=== PATIENT | female | born 1950 | race Two or more races ===

== ENCOUNTER 2022-09-13 16:25 | Inpatient (IN) | payer MEDICARE ==
[~2022-09-13] VITALS: Ht 162.6 cm; Wt 86.4 kg
[2022-09-13] MEDS ORDERED: ONDANSETRON HCL 4 MG/2 ML VIAL IV ONE (17:00)
[2022-09-13 17:22] LABS: Basophils # (auto) 0.1 10 ^3/uL (0-0.2); Basophils % (auto) 0.4 % (0.0-2.0); Eosinophils # (auto) 0 10 ^3/uL (0-0.8); Eosinophils % (auto) 0.3 % (0.0-7.0); Hematocrit 47.7 % (36.0-46.0); Hemoglobin 15.8 g/dL (12.2-16.2); Lymphocytes % (auto) 7.8 % (10.0-50.0); Mean Corpuscular Hemoglobin 29.5 pg (28.0-32.0); Mean Corpuscular Hgb Conc. 33.1 g/dL (32.0-36.0); Mean Corpuscular Volume 89.1 fL (80.0-100.0); Monocytes # (auto) 1.2 10 ^3/uL (0-1.3); Monocytes % (auto) 9.3 % (0.0-12.0); Neutrophils # (auto) 10.6 10 ^3/uL (1.6-8.6); Neutrophils % (auto) 82.2 % (37.0-80.0); Nucleated Red Blood Cells % 0.4 %; Red Blood Cells 5.36 10^6/uL (4.0-5.20); Red Cell Distribution Width 15.4 % (11.8-14.3); White Blood Cell 12.8 10^3/uL (4.4-10.8)
[2022-09-13 17:28] LABS: Albumin 3.5 g/dL (3.4-5.0); Calcium 9.5 mg/dL (8.5-10.1); Potassium 3.6 mmol/L (3.5-5.1)
[2022-09-13 17:31] LABS: BUN/Creatinine Ratio 14.3 (10.0-20.0); Bilirubin, Total 0.7 mg/dL (0.2-1.0); Total Protein 7.6 g/dL (6.4-8.2)
[2022-09-13] MEDS ORDERED: MORPHINE SULFATE INJ 2 MG/ml SYRG IV ONE (18:00)
[2022-09-13] MEDS ORDERED: PANTOPRAZOLE 40 MG/10 ML VIAL INJ IV ONE (18:00)
[2022-09-13] MEDS ORDERED: levoFLOXacin 500MG 100 ML IV ONE (20:00)
[2022-09-13] MEDS ORDERED: metroNIDAZOLE 500MG/100ML 100 ML IV ONE (20:00)
[2022-09-13 20:18] LABS: Urine Bacteria FEW /hpf (None Seen); Urine Blood Negative /uL (Negative); Urine Hyaline Cast MANY /lpf (0 - 2); Urine Mucus FEW (None Seen); Urine Specific Gravity 1.021 (1.001-1.035); Urine WBC 1 /hpf (0 - 5)
[2022-09-14] MEDS ORDERED: MORPHINE SULFATE INJ 2 MG/ml SYRG IV PRN
[2022-09-14] MEDS ORDERED: DEXTROSE (50%) 50ML SYRG IV PRN
[2022-09-14] MEDS ORDERED: hydrALAZINE HCL 20 MG/ML VL IV PRN
[2022-09-14] MEDS ORDERED: NITROGLYCERIN 0.4 MG SL TAB SL PRN
[2022-09-14] MEDS ORDERED: ACETAMINOPHEN 325 MG TAB PO PRN
[2022-09-14] MEDS ORDERED: ONDANSETRON HCL 4 MG/2 ML VIAL IV PRN
[2022-09-14] MEDS ORDERED: HYDROcodone-ACET 5/325MG TAB PO PRN
[2022-09-14] MEDS ORDERED: levoFLOXacin 500MG 100 ML IV ONE (00:15)
[2022-09-14] MEDS ORDERED: metroNIDAZOLE 500MG/100ML 100 ML IV ONE (00:15)
[2022-09-14] MEDS: ACCU-CHEK COMFORT CURVE STRIP VI SCH ×5 (00:40→23:49)
[2022-09-14] MEDS: InsuLIN REG 1unit/0.01ml Soln (100units/ml) SC SCH ×5 (00:51→23:53)
[2022-09-14] MEDS: MORPHINE SULFATE INJ 2 MG/ml SYRG IV PRN ×3 (03:00→15:31)
[2022-09-14 04:05] LABS: Basophils # (auto) 0 10 ^3/uL (0-0.2); Basophils % (auto) 0.3 % (0.0-2.0); Eosinophils # (auto) 0 10 ^3/uL (0-0.8); Hematocrit 43.7 % (36.0-46.0); Hemoglobin 14.8 g/dL (12.2-16.2); Lymphocytes # (auto) 0.9 10 ^3/uL (0.4-5.4); Lymphocytes % (auto) 16.5 % (10.0-50.0); Mean Corpuscular Hemoglobin 30.6 pg (28.0-32.0); Mean Corpuscular Hgb Conc. 33.9 g/dL (32.0-36.0); Mean Corpuscular Volume 90.2 fL (80.0-100.0); Monocytes # (auto) 0.8 10 ^3/uL (0-1.3); Neutrophils % (auto) 69.2 % (37.0-80.0); Nucleated Red Blood Cells % 0.2 %; Red Blood Cells 4.84 10^6/uL (4.0-5.20); Red Cell Distribution Width 15.4 % (11.8-14.3); White Blood Cell 5.8 10^3/uL (4.4-10.8)
[2022-09-14 04:22] LABS: Calcium 8.8 mg/dL (8.5-10.1); Potassium 3.9 mmol/L (3.5-5.1)
[2022-09-14 04:28] LABS: BUN/Creatinine Ratio 22.1 (10.0-20.0); Bilirubin, Total 0.6 mg/dL (0.2-1.0); Total Protein 7.1 g/dL (6.4-8.2)
[2022-09-14] MEDS: metroNIDAZOLE 500MG/100ML 100 ML IV SCH ×3 (06:40→23:49)
[2022-09-14] MEDS ORDERED: GASTROGRAFIN 120 ML SOL ONE (09:25)
[2022-09-14] MEDS: FAMOTIDINE (10MG/ML) 2ML VL IV SCH (10:36)
[2022-09-14] MEDS ORDERED: metroNIDAZOLE 500MG/100ML 100 ML IV SCH (14:00)
[2022-09-14 22:00] VITALS: BP 122/48
[2022-09-15 05:00] VITALS: BP 101/54
[2022-09-15] MEDS: metroNIDAZOLE 500MG/100ML 100 ML IV SCH ×2 (05:43→13:50)
[2022-09-15] MEDS: ACCU-CHEK COMFORT CURVE STRIP VI SCH ×2 (05:43→11:46)
[2022-09-15] MEDS: InsuLIN REG 1unit/0.01ml Soln (100units/ml) SC SCH ×2 (05:44→11:46)
[2022-09-15 06:12] LABS: Basophils # (auto) 0.1 10 ^3/uL (0-0.2); Basophils % (auto) 1.1 % (0.0-2.0); Eosinophils # (auto) 0.2 10 ^3/uL (0-0.8); Eosinophils % (auto) 2.4 % (0.0-7.0); Hematocrit 37.9 % (36.0-46.0); Hemoglobin 12.6 g/dL (12.2-16.2); Lymphocytes # (auto) 1.7 10 ^3/uL (0.4-5.4); Lymphocytes % (auto) 25.4 % (10.0-50.0); Mean Corpuscular Hemoglobin 29.7 pg (28.0-32.0); Mean Corpuscular Hgb Conc. 33.2 g/dL (32.0-36.0); Mean Corpuscular Volume 89.4 fL (80.0-100.0); Monocytes # (auto) 0.8 10 ^3/uL (0-1.3); Monocytes % (auto) 12.2 % (0.0-12.0); Neutrophils # (auto) 3.9 10 ^3/uL (1.6-8.6); Neutrophils % (auto) 58.9 % (37.0-80.0); Nucleated Red Blood Cells % 0.1 %; Red Blood Cells 4.24 10^6/uL (4.0-5.20); White Blood Cell 6.6 10^3/uL (4.4-10.8)
[2022-09-15 06:24] LABS: BUN/Creatinine Ratio 33.8 (10.0-20.0); Calcium 8.6 mg/dL (8.5-10.1); Potassium 3.4 mmol/L (3.5-5.1)
[2022-09-15 08:43] VITALS: BP 111/51
[2022-09-15] MEDS ORDERED: levoFLOXacin 500MG 100 ML IV SCH (10:00)
[2022-09-15] MEDS: FAMOTIDINE (10MG/ML) 2ML VL IV SCH (10:17)
[2022-09-15 13:00] VITALS: BP 100/51
[2022-09-15 13:55] VITALS: BP 100/51
== END 2022-09-15 14:50 | disposition home or self-care (01) | DRG 392 ==
LOC: ER 16:25 → OVERFLOW 09-14 00:03 → CENTRAL 09-14 21:03
PROVIDERS: ADMIT Nurse Practitioner Family; ATTEND Internal Medicine Pulmonary Disease
PROC: 0D9670Z Drainage of Stomach with Drainage Device, Via Natural or Artificial Opening (ICD-10-PCS; principal; 2022-09-14)
DX: R10.9 Unspecified abdominal pain (principal); E11.65 Type 2 diabetes mellitus with hyperglycemia; Z88.0 Allergy status to penicillin; D72.829 Elevated white blood cell count, unspecified; Z88.8 Allergy status to other drugs, medicaments and biological substances; Z90.49 Acquired absence of other specified parts of digestive tract; Z93.2 Ileostomy status
CPT/HCPCS: 36415; 71045; 74176; 74250; 80048; 80053; 81001; 82962; 83605; 83690; 85025; 87040; 96365; 96367; 96375; 96376; C9113; G0378; J1815; J1956; J2405; J3490

== ENCOUNTER → 2024-10-14 | Outpatient (CLI) | payer MEDICARE ==
[~2024-10-14] VITALS: Ht 162.6 cm; Wt 79.4 kg
[~2024-10-14] MED LIST: ADENOSINE 67 MG in GIVE UN-DILUTED 0 ML IV ONE; ADENOSINE 90 MG/30 ML INJ IV ONE
== END | disposition home or self-care (01) ==
LOC: Rad HDHVI 08:08
PROVIDERS: ATTEND Internal Medicine Cardiovascular Disease
DX: Z01.810 Encounter for preprocedural cardiovascular examination (principal); I49.3 Ventricular premature depolarization; R94.31 Abnormal electrocardiogram [ECG] [EKG]; R06.02 Shortness of breath; F17.210 Nicotine dependence, cigarettes, uncomplicated; Z88.0 Allergy status to penicillin
CPT/HCPCS: 78452; 93017; A9500; J0153

== ENCOUNTER → 2024-10-15 | Outpatient (CLI) | payer MEDICARE ==
[~2024-10-15] MED LIST changes: -ADENOSINE 67 MG in GIVE UN-DILUTED 0 ML IV ONE; -ADENOSINE 90 MG/30 ML INJ IV ONE; +IOHEXOL 350 MG/ML 100ML IJ ONE
[2024-10-15 09:49] VITALS: BP 143/69; PULSE 71; RESP 18; O2SAT 95
[2024-10-15 10:23] VITALS: BP 136/72; PULSE 69; RESP 18; O2SAT 95
--- NOTE | 2024-10-15 11:58 | DVH ---
Indication: AAA Technique: CT axial images of the abdomen and pelvis are obtained with intravenous contrast. Coronal and sagittal reformats were obtained. Radiation Dose Information: CTDI volume is 20.72 mGy. Dose-length product is 801.78 mGy*cm Comparison: None FINDINGS: Abdominal aortic atherosclerotic calcification disease and eccentric mural wall thrombus. The distal descending thoracic aorta measures 2.7 cm in diameter. 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 Mild stenosis of the proximal SMA, less than 50%. Moderate stenosis proximal righ t renal artery, 60% stenosis. 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 The infraren al abdominal aorta measures up to 2.7 cm in diameter. No contrast seen external to the endograft. Th e common, external iliac arteries demonstrate no high-grade stenoses. Mild stenosis right distal exte rnal iliac artery, less than 50% stenosis. Lung bases demonstrate 5 mm right middle lobe calcified nodule. Bilateral atelectasis. Adrenal glands, spleen unremarkable. Pancreatic tail hypodense lesion measuring [address] evidence for cholelithiasis. No enhancing hepatic lesion. No hydronephrosis. Stomach is moderately distended. Small bowel loops are normal in caliber. Moderate volume stool in th e colon. Postsurgical changes of the ascending colon/ cecal region. Bladder partially distended. No free pelvic fluid. No inguinal lymphadenopathy. Moderate lumbar degenerative disc disease. IMPRESSION: 1. Aorto bi-iliac endograft. Infrarenal abdominal aorta measures up to 2.7 cm in diameter. No evidenc e for contrast perfusion external to the endograft. No identifiable endoleak. 2. 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 Moderate stenosis proximal right renal artery. 3. Other findings as described.
== END | disposition home or self-care (01) ==
LOC: Rad HDHVI 09:37
PROVIDERS: ATTEND Internal Medicine Cardiovascular Disease
DX: I70.1 Atherosclerosis of renal artery (principal); I77.4 Celiac artery compression syndrome; I70.8 Atherosclerosis of other arteries; I21.9 Acute myocardial infarction, unspecified; E04.1 Nontoxic single thyroid nodule; J98.11 Atelectasis; K31.89 Other diseases of stomach and duodenum; N32.89 Other specified disorders of bladder; I71.40 Abdominal aortic aneurysm, without rupture, unspecified; M51.369 Other intervertebral disc degeneration, lumbar region without mention of lumbar back pain or lower extremity pain; Z98.890 Other specified postprocedural states
CPT/HCPCS: 74175; G0463; Q9967

== ENCOUNTER 2024-10-21 13:31 | Outpatient (CLI) | payer MEDICARE | END 2024-10-21 17:00 | disposition home or self-care (01) | LOC: Rad HDHVI 13:31 | PROVIDERS: ATTEND Internal Medicine Cardiovascular Disease | DX: Z01.810 Encounter for preprocedural cardiovascular examination (principal) | CPT/HCPCS: 93880 ==